=== PATIENT | male | born 1950 | race Caucasian/White ===

== ENCOUNTER 2022-10-13 12:46 | Outpatient (CLI) | payer MEDICARE, MEDICAID, SELFPAY | END 2022-10-13 12:47 | disposition home or self-care (01) | LOC: WOUND 12:50 | PROVIDERS: PCP Internal Medicine; Visit Provider Nurse Practitioner Family | DX: K60.1 Chronic anal fissure (principal); M62.3 Immobility syndrome (paraplegic) | CPT/HCPCS: 99213 ==